=== PATIENT | male | born 1985 ===

== ENCOUNTER 2017-04-27 03:19 | Emergency (ER) | payer SELFPAY ==
[2017-04-27 03:24] VITALS: BP 144/78; PULSE 92; RESP 18; TEMP 97.4; O2SAT 99
--- NOTE | 2017-04-27 03:32 | ED PDOC ---
HPI: Psych/Substance Abuse Time Seen by Provider: 04/27/17 03:21 Chief Complaint (Nursing): Alcohol Ingestion Chief Complaint (Provider): Alcohol abuse - Denies complaint History Per: Patient History/Exam Limitations: no limitations Additional Complaint(s): Pt states that he was sleeping in a dinner and was told he had to go to the ER. Pt denies complaint. Pt states he lives in [place] and is getting home via taxi. Past Medical History Reviewed: Historical Data, Nursing Documentation, Vital Signs Vital Signs: Last Vital Signs Temp 97.4 F L 04/27/17 03:21 Pulse 92 H 04/27/17 03:21 Resp 18 04/27/17 03:21 BP 144/78 04/27/17 03:21 Pulse Ox 99 04/27/17 03:21 - Medical History PMH: No Chronic Diseases - Surgical History Surgical History: No Surg Hx - Family History Family History: States: Unknown Family Hx - Living Arrangements Living Arrangements: With Family - Social History Current smoker - smoking cessation education provided: No Alcohol: None Drugs: Denies - Immunization History Hx Tetanus Toxoid Vaccination: No Hx Influenza Vaccination: No Hx Pneumococcal Vaccination: No - Home Medications Home Medications: Ambulatory Orders Medication Instructions Recorded No Known Home Med 07/05/15 - Allergies Allergies/Adverse Reactions: Allergies Allergy/AdvReac Type Severity Reaction Status Date / Time No Known Allergies Allergy Verified 07/05/15 02:04 Review of Systems ROS Statement: Except As Marked, All Systems Reviewed And Found Negative Constitutional: Negative for: Fever, Chills Gastrointestinal: Negative for: Nausea, Vomiting, Abdominal Pain Physical Exam - Reviewed Nursing Documentation Reviewed: Yes Vital Signs Reviewed: Yes - Physical Exam Appears: Positive for: Well, Non-toxic, No Acute Distress Head Exam: Positive for: ATRAUMATIC, NORMAL INSPECTION, NORMOCEPHALIC Skin: Positive for: Normal Color, Warm, DRY Eye Exam: Positive for: Normal appearance ENT: Positive for: Normal ENT Inspection Neck: Positive for: Normal, Painless ROM Cardiovascular/Chest: Positive for: Regular Rate, Rhythm Respiratory: Positive for: Normal Breath Sounds. Negative for: Accessory Muscle Use, Respiratory Distress Gastrointestinal/Abdominal: Positive for: Normal Exam, Bowel Sounds, Soft Back: Positive for: Normal Inspection Extremity: Positive for: Normal ROM Neurologic/Psych: Positive for: Alert, Oriented - ECG O2 Sat by Pulse Oximetry: 99 Pulse Ox Interpretation: Normal Medical Decision Making Medical Decision Making: Pt comes into ER with EMS with steady gait and clear speech. Disposition - Clinical Impression Clinical Impression: Alcohol abuse - Patient ED Disposition Is Patient to be Admitted: No Counseled Patient/Family Regarding: Diagnosis, Need For Followup - Disposition Disposition: Routine/Home Disposition Time: 03:27 Condition: GOOD Instructions: Abuse of Alcohol (ED)
== END 2017-04-27 04:40 | disposition home or self-care (01) ==
LOC: H.ER 03:19
DX: F10.10 Alcohol abuse, uncomplicated (principal)